=== PATIENT | male | born 1990 | race Caucasian/White ===

== ENCOUNTER 2021-04-30 08:20 | Emergency (ER) | payer MEDICAID ==
[~2021-04-30] VITALS: Ht 182.9 cm; Wt 100.0 kg
[~2021-04-30 08:20] MED LIST: CHLO25CA10 PO
[2021-04-30 09:31] VITALS: BP 125/83
[2021-04-30] MEDS ORDERED: IBUP-1984 PO (10:06)
[2021-04-30] MEDS ORDERED: PRED20TA PO (10:06)
== END 2021-04-30 10:17 | disposition home or self-care (01) ==
LOC: ER 08:20
DX: M10.9 Gout, unspecified (principal); M79.672 Pain in left foot; F12.90 Cannabis use, unspecified, uncomplicated; Z72.89 Other problems related to lifestyle; Z79.899 Other long term (current) drug therapy
CPT/HCPCS: 99283

== ENCOUNTER 2021-10-04 09:35 | Emergency (ER) | payer MEDICAID ==
[~2021-10-04] VITALS: Ht 182.9 cm; Wt 100.0 kg
[2021-10-04] MEDS ORDERED: ipratropium/albuterol 3ml nebule NEB ONE (09:50)
[2021-10-04 10:36] LABS: BASOPHILS # (AUTO) 0.1 X10'3 (0-0.2); BASOPHILS % (AUTO) 0.9 % (0-1); EOSINOPHILS # (AUTO) 1.6 X10'3 (0-0.9); EOSINOPHILS % (AUTO) 18.1 % (0-6); HEMATOCRIT 47.9 % (42.0-52.0); HEMOGLOBIN 16.4 g/dl (14.0-17.9); LYMPHOCYTES # (AUTO) 2.1 X10'3 (1.1-4.8); LYMPHOCYTES % (AUTO) 24.7 % (21-51); MEAN CORPUSCULAR HEMOGLOBIN 31.4 PG (27.0-31.0); MEAN CORPUSCULAR HGB CONC 34.1 g/dL (33.0-36.5); MEAN CORPUSCULAR VOLUME 91.9 FL (78-98); MEAN PLATELET VOLUME 8.7 FL (7.4-10.4); MONOCYTES # (AUTO) 0.6 X10'3 (0-0.9); MONOCYTES % (AUTO) 7.1 % (2-12); NEUTROPHILS # (AUTO) 4.2 X10'3 (1.8-7.7); NEUTROPHILS % (AUTO) 49.2 % (42-75); PLATELET COUNT 273 X10'3 (140-440); RED BLOOD COUNT 5.21 X10'6 (4.70-6.10); RED CELL DISTRIBUTION WIDTH 13.3 % (11.5-14.5); WHITE BLOOD COUNT 8.6 X10'3 (4.5-11.0)
[2021-10-04 10:41] LABS: D-DIMER 0.43 MG/L FEU (0-0.50)
[2021-10-04 10:45] LABS: ALANINE AMINOTRANSFERASE 125 U/L (12-78); ALBUMIN 3.9 G/DL (3.4-5.0); ALBUMIN/GLOBULIN RATIO 0.9 (1.1-1.5); ALKALINE PHOSPHATASE 47 IU/L (46-116); ANION GAP 13 (8-16); ASPARTATE AMINO TRANSFERASE 47 U/L (10-37); BILIRUBIN,TOTAL 0.7 MG/DL (0.1-1.0); BLOOD UREA NITROGEN 16 MG/DL (7-18); BUN/CREATININE RATIO 17.8 (5.4-32.0); CALCIUM 9.2 MG/DL (8.5-10.1); CHLORIDE 104 MMOL/L (99-107); GLUCOSE 95 MG/DL (70-104); POTASSIUM 3.8 MMOL/L (3.5-5.1); SODIUM 141 MMOL/L (135-145); TOTAL CARBON DIOXIDE 24.5 MMOL/L (24-32); TOTAL PROTEIN 8.1 G/DL (6.4-8.2); eGFR > 90 ML/MIN
[2021-10-04] MEDS ORDERED: ipratropium/albuterol 3ml nebule NEB SCH (11:00)
[2021-10-04] MEDS ORDERED: azithromycin 250mg tablet PO ONE (11:15)
[2021-10-04] MEDS ORDERED: AZIT-83 PO ×3 (11:39→12:10)
[2021-10-04 11:55] VITALS: BP 120/83
[2021-10-04] MEDS ORDERED: ALBU18HF2 INH (13:53)
== END 2021-10-04 11:56 | disposition home or self-care (01) ==
LOC: ER 09:36
DX: J40 Bronchitis, not specified as acute or chronic (principal); Z20.822 Contact with and (suspected) exposure to COVID-19; R06.2 Wheezing; R05.9 Cough, unspecified; F17.200 Nicotine dependence, unspecified, uncomplicated; F12.90 Cannabis use, unspecified, uncomplicated; Z79.899 Other long term (current) drug therapy; Z72.89 Other problems related to lifestyle; Z98.890 Other specified postprocedural states; Z79.2 Long term (current) use of antibiotics
CPT/HCPCS: 36415; 71045; 80053; 85025; 85379; 87502; 87503; 87635; 93005; 94640; 99285; C9803; 94760

== ENCOUNTER 2021-10-28 08:32 | Emergency (ER) | payer MEDICAID ==
[~2021-10-28] VITALS: Ht 182.9 cm; Wt 104.5 kg
[~2021-10-28 08:32] MED LIST changes: +ALBU18HF2 INH
[2021-10-28 09:15] VITALS: BP 130/69
--- NOTE | 2021-10-28 13:06 | NUR ---
PT INFORMED REGISTRATION THAT HE WANTS TO LEAVE. PT LEFT LOBBY BEFORE CHG RN COULD SPEAK WITH HIM
[2021-10-29] MEDS ORDERED: DEXA6TAB6 PO (04:29)
[2021-10-29] MEDS ORDERED: ALBU6.7H9 INH (04:30)
== END 2021-10-28 13:10 | disposition left against medical advice (07) ==
LOC: ER 08:32
DX: R06.02 Shortness of breath (principal); F12.90 Cannabis use, unspecified, uncomplicated; Z98.890 Other specified postprocedural states; Z72.89 Other problems related to lifestyle; Z79.899 Other long term (current) drug therapy; Z53.21 Procedure and treatment not carried out due to patient leaving prior to being seen by health care provider
CPT/HCPCS: 71046; 93005

== ENCOUNTER 2021-10-29 00:55 | Emergency (ER) | payer MEDICAID ==
[~2021-10-29] VITALS: Ht 188 cm; Wt 104.5 kg
[2021-10-29 02:20] LABS: ALANINE AMINOTRANSFERASE 129 U/L (12-78); ALBUMIN 4.4 G/DL (3.4-5.0); ALBUMIN/GLOBULIN RATIO 1.2 (1.1-1.5); ALKALINE PHOSPHATASE 41 IU/L (46-116); ANION GAP 14 (8-16); ASPARTATE AMINO TRANSFERASE 50 U/L (10-37); BILIRUBIN,TOTAL 0.6 MG/DL (0.1-1.0); BLOOD UREA NITROGEN 10 MG/DL (7-18); BUN/CREATININE RATIO 12.5 (5.4-32.0); CALCIUM 9.3 MG/DL (8.5-10.1); CHLORIDE 101 MMOL/L (99-107); GLUCOSE 108 MG/DL (70-104); POTASSIUM 3.3 MMOL/L (3.5-5.1); SODIUM 139 MMOL/L (135-145); TOTAL CARBON DIOXIDE 23.6 MMOL/L (24-32); TOTAL PROTEIN 8.2 G/DL (6.4-8.2); eGFR > 90 ML/MIN
[2021-10-29 02:22] LABS: MAGNESIUM 1.6 MG/DL (1.5-2.4)
[2021-10-29 02:28] VITALS: BP 130/73
[2021-10-29 02:35] LABS: BASOPHILS # (AUTO) 0.1 X10'3 (0-0.2); EOSINOPHILS # (AUTO) 0.8 X10'3 (0-0.9); HEMOGLOBIN 15.3 g/dl (14.0-17.9); LYMPHOCYTES # (AUTO) 1.9 X10'3 (1.1-4.8); LYMPHOCYTES % (AUTO) 16.7 % (21-51); MONOCYTES # (AUTO) 0.8 X10'3 (0-0.9); RED CELL DISTRIBUTION WIDTH 13.2 % (11.5-14.5)
[2021-10-29 02:37] LABS: BASOPHILS % (AUTO) 0.9 % (0-1); EOSINOPHILS % (AUTO) 6.6 % (0-6); HEMATOCRIT 45.1 % (42.0-52.0); MEAN CORPUSCULAR HEMOGLOBIN 31.1 PG (27.0-31.0); MEAN CORPUSCULAR HGB CONC 33.9 g/dL (33.0-36.5); MEAN CORPUSCULAR VOLUME 91.7 FL (78-98); MEAN PLATELET VOLUME 9.8 FL (7.4-10.4); MONOCYTES % (AUTO) 6.6 % (2-12); NEUTROPHILS # (AUTO) 7.9 X10'3 (1.8-7.7); NEUTROPHILS % (AUTO) 69.2 % (42-75); PLATELET COUNT 218 X10'3 (140-440); RED BLOOD COUNT 4.92 X10'6 (4.70-6.10); WHITE BLOOD COUNT 11.5 X10'3 (4.5-11.0)
[2021-10-29] MEDS ORDERED: DEXA6TAB6 PO (04:29)
[2021-10-29] MEDS ORDERED: ipratropium/albuterol 3ml nebule NEB ONE (04:30)
[2021-10-29] MEDS ORDERED: ALBU6.7H9 INH (04:30)
[2021-10-29] MEDS ORDERED: dexamethasone 4mg tablet PO ONE (04:30)
== END 2021-10-29 05:07 | disposition home or self-care (01) ==
LOC: ER 00:56
DX: J04.0 Acute laryngitis (principal); F17.200 Nicotine dependence, unspecified, uncomplicated; F12.10 Cannabis abuse, uncomplicated; Z79.899 Other long term (current) drug therapy
CPT/HCPCS: 36415; 80053; 83735; 84145; 84484; 85025; 93005; 94640; 99284; 99285

== ENCOUNTER 2022-07-01 11:02 | Emergency (ER) | payer MEDICAID ==
[~2022-07-01] VITALS: Ht 182.9 cm; Wt 220.0 kg
[~2022-07-01 11:02] MED LIST changes: +ALBU6.7H14 INH; +DEXA6TAB6 PO
[2022-07-01 11:22] VITALS: BP 116/82
[2022-07-01] MEDS ORDERED: TETanus/Pertussis (Acell)/Diphther VAC/PF (Tdap-Adult) 0.5ml syringe IMVAC ONE (14:20)
[2022-07-01] MEDS ORDERED: LIDOCAINE 2%/EPI 1:100,000 inj. Multi-dose 20 ML VIAL SQ ONE (14:20)
[2022-07-01] MEDS ORDERED: bacitracin 15gm ointment TP ONE (14:20)
== END 2022-07-01 14:56 | disposition home or self-care (01) ==
LOC: ER 11:03
DX: S61.411A Laceration without foreign body of right hand, initial encounter (principal); F12.90 Cannabis use, unspecified, uncomplicated; W45.8XXA Other foreign body or object entering through skin, initial encounter; Y93.89 Activity, other specified; Y92.89 Other specified places as the place of occurrence of the external cause; Y99.8 Other external cause status
CPT/HCPCS: 12001; 90471; 90715; 99283; J7030; A6449

== ENCOUNTER → 2023-11-12 | Outpatient (CLI) | payer MEDICAID | END | disposition home or self-care (01) | LOC: RAD 13:41 | PROVIDERS: ATTEND Family Medicine | DX: M79.671 Pain in right foot (principal) | CPT/HCPCS: 73620 ==

== ENCOUNTER 2023-12-06 13:52 | Emergency (ER) | payer MEDICAID ==
[~2023-12-06] VITALS: Ht 182.9 cm; Wt 90.0 kg
[2023-12-06 14:16] VITALS: TEMP 98.4
[2023-12-06 14:35] VITALS: BP 117/84; PULSE 108; O2SAT 95
[2023-12-06 14:51] LABS: BASOPHILS % (AUTO) 0.3 % (0-1); EOSINOPHILS # (AUTO) 0.2 X10'3 (0-0.9); EOSINOPHILS % (AUTO) 2.8 % (0-6); HEMATOCRIT 50.4 % (42.0-52.0); HEMOGLOBIN 17.1 g/dl (14.0-17.9); LYMPHOCYTES # (AUTO) 2.1 X10'3 (1.1-4.8); LYMPHOCYTES % (AUTO) 35.9 % (21-51); MEAN CORPUSCULAR HEMOGLOBIN 32.3 PG (27.0-31.0); MEAN PLATELET VOLUME 7.5 FL (7.4-10.4); MONOCYTES # (AUTO) 0.4 X10'3 (0-0.9); MONOCYTES % (AUTO) 6.7 % (2-12); NEUTROPHILS # (AUTO) 3.1 X10'3 (1.8-7.7); NEUTROPHILS % (AUTO) 54.3 % (42-75); PLATELET COUNT 272 X10'3 (140-440); RED BLOOD COUNT 5.31 X10'6 (4.70-6.10); RED CELL DISTRIBUTION WIDTH 12.8 % (11.5-14.5); WHITE BLOOD COUNT 5.7 X10'3 (4.5-11.0)
[2023-12-06 15:03] LABS: ALBUMIN 4.3 G/DL (3.4-5.0); ANION GAP 14 (8-16); BLOOD UREA NITROGEN 7 MG/DL (7-18); BUN/CREATININE RATIO 7.9 (10.0-20.0); CHLORIDE 102 MMOL/L (99-107); CREATININE 0.89 MG/DL (0.60-1.10); ETHANOL 184 MG/DL (<10); GLUCOSE 111 MG/DL (70-104); POTASSIUM 3.7 MMOL/L (3.5-5.1); SODIUM 138 MMOL/L (135-145); TOTAL CARBON DIOXIDE 21.8 MMOL/L (24-32); eCRCL 132 ML/MIN; eGFR > 90 ML/MIN
[2023-12-06 15:40] VITALS: RESP 16
[2023-12-06] MEDS ORDERED: ALBU18HF2 INH (16:16)
[2023-12-06] MEDS ORDERED: albuterol 2.5 MG/3 ML nebule NEB PRN (16:50)
[2023-12-06 17:00] LABS: URINE AMPHETAMINE SCREEN NEGATIVE (Neg); URINE BARBITUATE SCREEN NEGATIVE (Neg); URINE BENZODIAZEPINES SCREEN NEGATIVE (Neg); URINE CANNABINOID SCREEN POSITIVE (Neg); URINE COCAINE SCREEN NEGATIVE (Neg); URINE METHADONE SCREEN NEGATIVE (Neg); URINE OPIATE SCREEN NEGATIVE (Neg); URINE PHENCYCLIDINE SCREEN NEGATIVE (Neg)
== END 2023-12-06 19:55 | disposition home or self-care (01) ==
LOC: ER 13:54
DX: F32.89 Other specified depressive episodes (principal); F17.210 Nicotine dependence, cigarettes, uncomplicated; F12.90 Cannabis use, unspecified, uncomplicated; Z79.899 Other long term (current) drug therapy; Z20.822 Contact with and (suspected) exposure to COVID-19; Z98.890 Other specified postprocedural states
CPT/HCPCS: 36415; 80048; 80305; 80320; 85025; 87811; 99284; A6223; J7030; A6258